=== PATIENT | female | born 1955 | race Caucasian/White ===

== ENCOUNTER → 2018-07-11 09:58 | Outpatient (CLI) | payer BC, SELFPAY | PROVIDERS: PCP Nurse Practitioner Family; Visit Provider Nurse Practitioner Family | DX: R00.2 Palpitations (principal) | CPT/HCPCS: 93225; 93226 ==

== ENCOUNTER → 2018-07-24 16:13 | Outpatient (CLI) | payer BC, SELFPAY ==
--- NOTE | 2018-07-24 16:17 | XR_ITS ---
EXAM: XR lumbar spine min 4V HISTORY: . ITS.REASON: LUMBAR PAIN ORDERING PHYSICIAN: Mercy Stewart PATIENT AGE: 62 years COMPARISON: None FINDINGS: There is mild lumbar scoliosis convex right. Degenerative disc disease is present from L2 to S1. No lytic or blastic change.. There is mild degenerative change in the SI joints on both sides. There are surgical clips in the right upper quadrant with 3 calcific densities in the right upper quadrant which have the appearance of gallstones however, it appears the patient has had a prior cholecystectomy. Abdomen CT may be of further value to determine the etiology of these calcifications. IMPRESSION: 1. Lumbar scoliosis with degenerative disc disease. 2. 3 calcific densities in the right upper quadrant which have the appearance of gallstones however, it appears that the patient has had a prior cholecystectomy. CT may be of further value if clinically desired
--- NOTE | 2018-07-24 16:17 | XR_ITS ---
XR hip LT 2-3V w/pelvis HISTORY: ITS.REASON: LEFT HIP PAIN ORDERING PHYSICIAN: Mercy Stewart PATIENT AGE: 62 years COMPARISON: None FINDINGS: No fracture or dislocation. No lytic or blastic change. There are mild osteoarthritic changes of the hips and mild degenerative changes of the SI joints. IMPRESSION: 1. No acute finding. 2. 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
== END ==
PROVIDERS: PCP Nurse Practitioner Family; Visit Provider Nurse Practitioner Family
DX: M25.552 Pain in left hip (principal); M54.5 Low back pain
CPT/HCPCS: 72110; 73502

== ENCOUNTER → 2020-01-30 14:35 | Outpatient (CLI) | payer BC, SELFPAY ==
--- NOTE | 2020-01-30 14:40 | US_ITS ---
PROCEDURE: US THYROID CLINICAL INDICATION: HYPOTHYROIDISM(ACQUIRED) COMPARISON: No exams were available for comparison FINDINGS: There is a 7 mm hypoechoic nodule in the isthmus the right well-circumscribed. No calcifications. The right lobe is 4.2 x 1.6 cm with diffuse heterogeneous echogenicity. No discrete nodule. The left lobe is 4.1 x 1.3 cm with diffuse heterogeneous echogenicity without discrete nodule. IMPRESSION: TR 4 nodule of the isthmus less than 1.5 cm. Recommend six-month follow-up. Bilateral enlarged thyroid gland with spongiform appearance Dictated by: Edgar Martins MD 01/30/2020 16:51 Edgar Martins MD in [place] 01/30/2020 16:51
== END ==
PROVIDERS: PCP Nurse Practitioner Family; Visit Provider Nurse Practitioner Family
DX: E03.9 Hypothyroidism, unspecified (principal)
CPT/HCPCS: 76536

== ENCOUNTER → 2022-09-20 06:07 | Outpatient (CLI) | payer MEDICARE, SELFPAY ==
--- NOTE | 2022-09-20 | CA_ITS ---
APPROVED REPORT Exam: Pharmacologic Technologist: Olivia Watson, Ht: 5 ft 2 in Wt: 219 lbs BSA: 1.99 m2 HR: 70 bpm BP: 142/73 mmHg Rhythm: SR Medical History Medical History: HTN, Hyperlipidemia, Diabetes Medications: Levothyroxine,,,,, Atenolol,,,,, Atorvastatin,,,,, DulaGLUTIDE,,,,, Esomeprazole magnesium,,,,, Polysaccharide iron complex,,,,, MetoFORMIN ER,,,,, Allergies: No known drug allergies Cardiac Risk Factors: HTN, Hyperlipidemia, Diabetes Stress Test Details Test: LEXISCAN HR Resting HR: 71 bpm Max Heart Rate (APMHR): 156 bpm Max HR Achieved: 105 bpm Target HR (85% APMHR): 133 bpm % of APMHR: 67 Recovery HR: 82 bpm BP Resting BP: 142/73 mmHg Max BP: 142/73 mmHg Recovery BP: 129.0/78.0 mmHg ECG Resting ECG: SR, non-specific T wave changes in the inferior lateral leads Stress ECG: No change Arrhythmia: None Recovery ECG: No change Recovery Arrhythmia: None Clinical Exercise duration: 04:05 min Highest Stage Achieved: Exercise capacity: 1.0 METs Stress ECG Conclusion PT HAD NAUSEA AND DYSPNEA AT BASELINE, ECG SHOWED NSR WITH NON-SPECIFIC T-WAVE CHANGES IN THE INFEROLATERAL LEADS NO CHANGE WITH PHARMAOLOGIC STRESS AGENT NON-DIAGNOSTIC ECG DUE TO BASELINE ABNORMALITIES Test Summary REST 01:10 . . 71 . 142/ 73 . . Stage 1 . . . . . . . Myoview Injected Stage 1 01:00 . . 103 . . . . Stage 2 01:00 . . 100 . 129/ 76 . . Stage 3 01:00 . . 89 . 138/ 72 . . Stage 4 01:00 . . 83 . 133/ 64 . . Stage 4 01:05 . . 83 . 133/ 64 . Stop exercise at 04:05 RECOVERY 01:00 . . 81 . . . . RECOVERY 02:00 . . 82 . . . . RECOVERY 03:00 . . 77 . 121/ 68 . . RECOVERY 04:00 . . 79 . 121/ 68 . . RECOVERY 04:17 . . 78 . 129/ 78 . . Electronically signed by : Breanna Clinton, 09/21/2022 01:44:53
--- NOTE | 2022-09-20 07:22 | NM_ITS ---
APPROVED REPORT Exam: Nuclear Stress Test Indication: DYSRHYTHMIA, OBESITY, DM, HYPERLIPIDEMIA, C.P., PALPITATIONS Patient Location: Outpatient Stress Tech: Olivia Watson [place] Tech:Anna Ramirez MAGO RT (R)(N)(M) Ht: 5 ft 2 in Wt: 200 lbs Bra Size: B HR: 70 bpm BP: 142/73 mmHg BSA: 1.91 m2 TID: 1.01 BMI: 36.5 History: DYSRHYTHMIA, OBESITY, DM, HYPERLIPIDEMIA, C.P., PALPITATIONS Procedure: Patient received 0.4 mg of intravenous Lexiscan, resting heart rate 70 bpm, resting blood pressure 142/73 mmHg, with Lexiscan maximum heart rate achieved was 102 bpm which is 65 % of the maximum predicted heart rate and blood pressure was 129/76 mmHg. With Lexiscan, patient denied any complaint of chest pain. Cardiac Stress and Resting SPECT Images: Cardiac Stress and Resting SPECT images were obtained using technetium 99m Myoview 32.0 mCi stress and 10.55 mCi at rest. Resting and stress imaging in supine position demonstrate a small sized, mild, partially reversible perfusion defect in the anterior LV wall that is no longer visualized with prone stress imaging. Findings are suggestive of breast attenuation. Gated imaging demonstrates normal global and regional LV systolic function. The LVEF is calculated at 54%. Conclusion: Breast attenuation is present. No definite reversible or fixed perfusion defect. Gated imaging demonstrates normal global and regional LV systolic function. The LVEF is calculated at 54%. Electronically signed by : Breanna Clinton, 09/21/2022 01:50:36
== END ==
PROVIDERS: PCP Nurse Practitioner Family; Visit Provider Physician Assistant
DX: E11.9 Type 2 diabetes mellitus without complications (principal); E78.5 Hyperlipidemia, unspecified; I10 Essential (primary) hypertension; R07.9 Chest pain, unspecified; R42 Dizziness and giddiness; R94.31 Abnormal electrocardiogram [ECG] [EKG]; Z79.84 Long term (current) use of oral hypoglycemic drugs
CPT/HCPCS: 78452; 93017; 93306; A9502; J2785

== ENCOUNTER 2023-05-30 04:25 | Emergency (ER) | payer MEDICARE, SELFPAY ==
[2023-05-30 04:25] VITALS: BP 168/87; PULSE 68; RESP 18; TEMP 36.6; O2SAT 100; BMI 31.6
[2023-05-30] MEDS: CYCLOBENZAPRINE 10MG TABLET 5 MG PO (04:38)
[2023-05-30] MEDS: LIDOCAINE 5% TRANSDERMAL PATCH 1 EACH TP (04:38)
--- NOTE | 2023-05-30 04:39 | HMH.EDGENADL ---
Discharge Plan Disposition Patient Disposition: Home, Self-Care Prescriptions Prescriptions: New lidocaine 5 % adhesive patch,medicated 1 patch topical DAILY PRN (Reason: pain) Qty: 30 0RF Rx Instructions: leave on most painful area for up to 12 hrs methocarbamol 500 mg tablet 500 mg PO Q6H PRN (Reason: pain) Qty: 30 0RF cyclobenzaprine 10 mg tablet 10 mg PO Q8H PRN (Reason: muscle spasm) Qty: 30 0RF No Action atorvastatin 20 mg tablet 20 mg PO DAILY atenolol 25 mg tablet 25 mg PO DAILY levothyroxine 100 mcg tablet 100 mcg PO DAILY Patient Comments: TAKE 1 TABLET BY MOUTH IN THE MORNING ON AN EMPTY STOMACH esomeprazole magnesium 40 mg capsule,delayed release(DR/EC) 40 mg PO DAILY Patient Comments: TAKE 1 CAPSULE BY MOUTH ONCE DAILY metformin 500 mg tablet extended release 24 hr 500 mg PO DAILY Pro Fe 180 mg iron capsule 180 mg PO DAILY Patient Comments: TAKE 1 CAPSULE BY MOUTH TWICE DAILY Trulicity 1.5 mg/0.5 mL pen injector 1.5 mg SQ WEEKLY tramadol 50 mg tablet 50 mg PO DAILY PRN Patient Comments: TAKE 1 TABLET BY MOUTH ONCE DAILY NEEDED Referrals Follow up/Referrals: Jaelyn Lewis APRN [Primary Care Provider] - See instructions Activity Restrictions/Add. Instructions Additional Instructions/Restrictions: Take Tylenol as needed for pain. Take muscle relaxers as needed. They can cause drowsiness, do not drive or operate machinery until you know how they will affect you. Please use lidocaine patches as needed for pain. Recommend using heating pad, massaging the area, etc. Please follow-up with your primary care provider. Please return to the emergency department if you develop any new or worsening symptoms or become concerned for your health. Clinical Impressions Clinical Impression: Neck pain, Trapezius muscle spasm Instructions Patient Instructions: DI for Neck Pain Discharge ED Provider: Valentino Josue Adult [facility] General Chief complaint: Neck Pain/Injury Stated complaint: neck pain, swelling in neck Time Seen by Provider: 05/30/23 04:34 Mode of Arrival: Ambulatory Source of Information: Patient Limitations: No Limitations Description of Symptoms (Recalled from ER Triage Doc. by RN): Patient reports left posterior neck pain that is exacerbated by movement for the last several days. Patient reports that she awoke the day the pain started and thought she had slept wrong but the pain has not improved with tylenol, salonpas, and OTC remedies. Patient does not have difficulty with swallowing, denies headache, and denies numbness or tingling of extremities. History of Present Illness HPI narrative: 67-year-old female with history of hypertension, hyperlipidemia, type 2 diabetes presents with neck pain. She reports that she first noticed that when she woke up a couple of days ago. The pain has been worsening since that time. She points to her trapezius muscle as the location of pain. She reports that she feels like her muscle is tight. She denies any headache. Denies any recent trauma. Denies any history of immunocompromise. Denies any radiating neurologic symptoms such as numbness weakness or tingling. No reported fever or concern for infection. Related Data Home Medications Medication Instructions Recorded Confirmed atenolol 25 mg tablet 25 mg PO DAILY 08/11/22 09/27/22 atorvastatin 20 mg tablet 20 mg PO DAILY 08/11/22 09/27/22 dulaglutide 1.5 mg/0.5 mL 1.5 mg SQ WEEKLY 08/11/22 09/27/22 subcutaneous pen injector (Trulicity) esomeprazole magnesium 40 mg 40 mg PO DAILY 08/11/22 09/27/22 capsule,delayed release levothyroxine 100 mcg tablet 100 mcg PO DAILY 08/11/22 09/27/22 metformin 500 mg tablet,extended 500 mg PO DAILY 08/11/22 09/27/22 release 24 hr polysaccharide iron complex 180 mg 180 mg PO DAILY 08/11/22 09/27/22 iron capsule (Pro Fe) tramadol 50 mg tablet 50 mg PO DAILY PRN 09/27/22 09/27/22 Previous Rx's Medication Instructions Recorded cyclobenzaprine 10 mg tablet 10 mg PO Q8H PRN muscle spasm #30 05/30/23 tabs lidocaine 5 % topical patch 1 patch topical DAILY PRN pain #30 05/30/23 ea methocarbamol 500 mg tablet 500 mg PO Q6H PRN pain #30 tabs 05/30/23 Allergies Allergy/AdvReac Type Severity Reaction Status Date / Time No Known Allergies Allergy Verified 09/27/22 08:54 [facility] Disclaimer: The information contained in this section may have been updated after the patient was seen, as this information can be updated by other users. Medical History Abnormal electrocardiogram [ECG] [EKG] Borderline diabetes Chest pain Dizziness DM2 (diabetes mellitus, type 2) FH: cholecystectomy Heart murmur HLD (hyperlipidemia) HTN (hypertension) Surgical History History of carpal tunnel surgery of left wrist History of carpal tunnel surgery of right wrist Family History Father Cancer Mother Cancer Brother Cancer Sister Cancer Diabetes Hypertension Social History Smoking Status: Never smoker alcohol intake: never substance use type: denies use current occupational status: employed Travel in the last 8 weeks: Inside the [place] ROS Obtained: Yes All systems reviewed & no additional complaints except as documented Physical Exam General General appearance: alert and in no apparent distress Head Head exam: atraumatic and normocephalic Eye Eye exam: Present normal appearance, PERRL and EOMI ENT ENT exam: Present normal oropharynx and normal external ear exam Neck Neck exam: Present normal inspection, full ROM and tenderness (Focal tenderness over the left trapezius muscle, no overlying skin changes, no mass or swelling, no lymphadenopathy) Chest Chest inspection: Present normal inspection and symmetric chest wall rise; Absent tenderness Respiratory Respiratory exam: Present normal lung sounds bilaterally; Absent respiratory distress Cardiovascular Cardiovascular exam: Present regular rate and normal rhythm Abdominal Exam Abdominal exam: Present soft; Absent distention, tenderness or guarding Extremities Exam Extremities exam: Present normal inspection; Absent edema or joint swelling Back Exam Back exam: Present normal inspection; Absent tenderness Neurological Exam Neurological exam: Present alert and oriented X3; Absent motor sensory deficit Psychiatric Psychiatric exam: Present normal affect and normal mood Skin Skin exam: Present warm, dry and normal color Lymphatic Lymphatic Findings: no adenopathy Medical Decision Making Medical Records Medical records reviewed: Yes I reviewed the patient's medical records. Mejia Inquiry Pt receiving controlled substance: No Mejia was queried for this patient: No Vital Signs: 05/30/23 04:25 Temperature 97.8 F Temperature Source Oral Pulse Rate [Left Radial] 68 Respiratory Rate 18 Blood Pressure [Right Arm] 168/87 H Blood Pressure Mean [Right Arm] 114 Blood Pressure Source [Right Arm] Automatic Cuff Blood Pressure Position [Right Arm] Sitting 02 Sat by Pulse Oximetry 100 Oxygen Delivery Method Room Air Lab Data Lab results reviewed: Yes I reviewed the patient's lab results. Orders (Tests/Meds): ED MEDICATIONS Discontinued Medications Generic Name Dose Route Start Last Admin Trade Name Rico PRN Reason Stop Dose Admin Cyclobenzaprine HCl 5 mg 05/30/23 04:34 Cyclobenzaprine 10mg Tablet PO 05/30/23 04:35 ONCE ONE Lidocaine 1 each 05/30/23 04:34 Lidocaine 5% Transdermal Patch TP 05/30/23 04:35 ONCE ONE Medical Decision Narrative: 67-year-old female, presentation complicated by hypertension hyperlipidemia type 2 diabetes presents with worsening left-sided neck/shoulder pain for the last couple days that she first noted after waking up. Parental diagnosis includes but not limited to muscle strain, muscle spasm, fracture, dislocation, neurologic injury, infection, malignancy. No evidence of emergent pathology on history or exam. Appears most consistent with muscular issue. CT imaging and labs were considered but deemed to be of low utility. Patient was given lidocaine patch and Flexeril in ED and discharged with prescription for muscle relaxers and lidocaine patches. Return precautions given. Instructions given regarding symptomatic care. Procedures Risk/Benefits of Procedure(s) Were Explained: Yes Critical Care Critical Care Time Critical Care Time: No
[2023-05-30 04:42] VITALS: BP 168/87; PULSE 68; RESP 18; TEMP 36.6; O2SAT 100
== END 2023-05-30 04:47 | disposition home or self-care (01) ==
PROVIDERS: Emergency Provider Emergency Medicine; PCP Nurse Practitioner Family
DX: M54.2 Cervicalgia (principal); M62.838 Other muscle spasm; I10 Essential (primary) hypertension; E78.5 Hyperlipidemia, unspecified; E11.9 Type 2 diabetes mellitus without complications; R01.1 Cardiac murmur, unspecified
CPT/HCPCS: 99283

== ENCOUNTER 2024-04-14 12:12 | Emergency (ER) | payer MEDICARE, SELFPAY ==
[2024-04-14 14:10] VITALS: BP 139/89; PULSE 68; RESP 19; TEMP 36.7; O2SAT 100; BMI 30.6
[2024-04-14 14:24] LABS: UTC Strep Screen (Rapid) Negative (Negative)
--- NOTE | 2024-04-14 14:24 | EXP.UTC ---
Discharge Plan Disposition Patient Disposition: Home, Self-Care Condition: Good Prescriptions Prescriptions: New amoxicillin-pot clavulanate 875-125 mg Tablet 1 tab PO Q12H 7 Days Qty: 14 0RF fluticasone propionate [Flonase Allergy Relief] 50 mcg/actuation spray,suspension 2 spray intranasal DAILY Qty: 16 0RF Rx Instructions: administer into each nostril daily No Action levothyroxine 100 mcg tablet 100 mcg PO DAILY Patient Comments: TAKE 1 TABLET BY MOUTH IN THE MORNING ON AN EMPTY STOMACH metformin 500 mg tablet extended release 24 hr 500 mg PO DAILY atenolol 50 mg tablet 50 mg PO DAILY Patient Comments: TAKE 1 TABLET BY MOUTH ONCE DAILY Referrals Follow up/Referrals: Jaelyn Lewis APRN [Primary Care Provider] - See instructions Activity Restrictions/Add. Instructions Additional Instructions/Restrictions: *Monitor Temp, Over the counter Motrin or Tylenol as directed/as needed Tylenol every 4 hours and Motrin every 6 hours (as long as your family doctor has told you that you can take it) for fever or pain. and straight to ER if unable to lower temp less than 101.0 after medication given *Warm salt water gargles may help to soothe the throat *Throat Lozenges? *Warm fluids like tea with honey may help to soothe the throat? *Sleep elevated *Humidifier/Vaporizer *Your throat swab was sent for culture. Those results are typically sent to your primary care. Be sure to follow up in 2-3 days with your family doctor/primary care physician if no improvement so they can review those result and treat if necessary. If you don?t have a primary care doctor, I recommend you get one but in the mean time, you will have to return to a walk in clinic Follow up IMMEDIATELY for new or worsening symptoms or no Noticeable improvement over the next 48-72 hours. 911 for difficulty breathing or swallowing Clinical Impressions Clinical Impression: Sinusitis Instructions Patient Instructions: DI for Sinusitis, Sinusitis Print Language Print Language: Slovak Discharge ED Provider[place] Marilyn [place] [facility] [place] General Stated complaint: sore throat, congestion Mode of Arrival: Ambulatory Source of Information: Patient Limitations: No Limitations Time Seen by Provider: 04/14/24 14:24 Description of Symptoms (Recalled from Triage Doc. by RN): PATIENT C/O SINUS CONGESTION, SORE THROAT, EAR PAIN AND HEADACHE X 2-3 DAYS HEENT Symptoms (Recalled from RN notes): Yes Resp Symptoms (Recalled from RN notes): No Skin Symptoms (Recalled from RN notes): No MS Symptoms (Recalled from RN notes): No Functional Status (Recalled from RN notes): WNL History of Present Illness Provider Complaint: Patient states that she has been having sinus pain and pressure for almost a week States that for the last 3-4 days she has been having pain and pressure in her ears also so today she came in to get checked Related Data Home Medications ?Medication ?Instructions ?Recorded ?Confirmed levothyroxine 100 mcg tablet 100 mcg PO DAILY 08/11/22 04/14/24 metformin 500 mg tablet,extended 500 mg PO DAILY 08/11/22 04/14/24 release 24 hr atenolol 50 mg tablet 50 mg PO DAILY 04/14/24 04/14/24 Previous Rx's ?Medication ?Instructions ?Recorded amoxicillin 875 mg-potassium 1 tab PO Q12H 7 days #14 tabs 04/14/24 clavulanate 125 mg tablet fluticasone propionate 50 2 spray intranasal DAILY #16 grams 04/14/24 mcg/actuation nasal spray,suspension (Flonase Allergy Relief) Allergies Allergy/AdvReac Type Severity Reaction Status Date / Time No Known Allergies Allergy Verified 09/27/22 08:54 Worker's Comp Is this a Worker's Comp case?: No [facility] Disclaimer: The information contained in this section may have been updated after the patient was seen, as this information can be updated by other users. Medical History Abnormal electrocardiogram [ECG] [EKG] Borderline diabetes Chest pain Dizziness DM2 (diabetes mellitus, type 2) FH: cholecystectomy Heart murmur HLD (hyperlipidemia) HTN (hypertension) Surgical History History of carpal tunnel surgery of left wrist History of carpal tunnel surgery of right wrist Family History Father Cancer Mother Cancer Brother Cancer Sister Cancer Diabetes Hypertension Social History Smoking Status: Never smoker alcohol intake: never substance use type: denies use current occupational status: employed Travel in the last 8 weeks: Inside the [place] Have you lived/traveled outside [place] in past 30 days?: No Contact w/someone who lives/traveled outside US past 30 days?: No Exposure to someone with infectious disease in past 14 days?: No Do you have a fever (greater than 100.4 F or 38 C)?: No Have you tested positive for COVID-19: No Exposed to someone with COVID-19 in past 14 days?: No Do you have a sore throat?: No Do you have a cough?: No Do you have any weakness?: No Do you have any diarrhea?: No Are you experiencing any unusual bleeding?: No Do you have any muscle aches/pain?: No Do you have any abdominal pain?: No Are you experiencing loss of taste or smell?: No ROS Obtained: Yes All systems reviewed & no additional complaints except as documented and Yes Systems reviewed as appropriate & no additional complaints except as documented Constitutional Constitutional: Reports system reviewed and no additional complaints, except as documented and Reports as per HPI ENT Ears, Nose, Mouth, and Throat: Reports system reviewed and no additional complaints, except as documented, Reports as per HPI, Reports otalgia, Reports sinus pain and Reports sinus pressure Cardiovascular Cardiovascular: Reports system reviewed and no additional complaints, except as documented and Reports as per HPI Respiratory Respiratory: Reports system reviewed and no additional complaints, except as documented and Reports as per HPI Gastrointestinal Gastrointestingal: Reports system reviewed and no additional complaints, except as documented and as per HPI Genitourinary Female Genitourinary: Reports system reviewed and no additional complaints, except as documented and Reports as per HPI Physical Exam General General appearance: alert and in no apparent distress ENT ENT exam: Present mucous membranes moist Expanded ENT Exam TM/Canal exam: Bilateral TM: bulging Nose exam: Present sinus tenderness Throat exam: Present other (PND noted) Respiratory Respiratory exam: Present normal lung sounds bilaterally; Absent respiratory distress or wheezes Cardiovascular Cardiovascular exam: Present regular rate, normal rhythm and normal heart sounds Abdominal Exam Abdominal exam: Present soft and normal bowel sounds; Absent distention or tenderness Neurological Exam Neurological exam: Present alert, oriented X3 and normal gait Medical Decision Making Medical Records Screening: Per USPSTF and CDC recommendations, given the prevalence of disease in our region, it is our hospital?s policy to screen for HIV and viral Hepatitis for all patients aged 18 and over and those with ongoing risk factors. Mejia Inquiry Pt receiving controlled substance: No Mejia was queried for this patient: No Vital Signs: 04/14/24 14:10 Temperature 98.1 F Temperature Source Oral Pulse Rate [Left Brachial] 68 Respiratory Rate 19 Blood Pressure [Left Arm] 139/89 Blood Pressure Mean [Left Arm] 105 Blood Pressure Source [Left Arm] Automatic Cuff Blood Pressure Position [Left Arm] Sitting 02 Sat by Pulse Oximetry 100 Oxygen Delivery Method Room Air
[2024-04-14 14:36] VITALS: BP 139/89; PULSE 68; RESP 19; TEMP 36.7; O2SAT 100
== END 2024-04-14 14:37 | disposition home or self-care (01) ==
PROVIDERS: Emergency Provider Nurse Practitioner; PCP Nurse Practitioner Family
DX: J01.90 Acute sinusitis, unspecified (principal)
CPT/HCPCS: 87880; 99213; G0381

== ENCOUNTER 2025-01-22 09:35 | Outpatient (CLI) | payer MEDICARE, SELFPAY ==
--- OUTSIDE RECORDS SUMMARY | 2020-08-05 12:01 | XMS_ITS | Encounter Summary ---
Author Organization [facility] Address [address] [place] [address] Care Team Providers Care Hob Grinder Name Role Phone TerryMercy ERIKA Primary Care Provider + [phone] Reason for Visit * Diagnostic Imaging (Routine) - Closed Specialty Diagnoses / Procedures Referred By Killian t Referred To Contact Radiology Diagnoses Benign thyroid cyst Procedures US Thyroid Jagruti Barreto MD [address] [address] Phone: tel: fax: [facility] [address] [facility] [address] [place] [id number] Phone: tel: fax: Referral ID Status Reason Start Date Expiration Date Visits Re quested Visits Authorized [id number] Closed 08/05/2020 08/05/2021 1 1 Encounter Details Date Type Department Care Team (Late st Contact Info) Description 08/05/2020 12:01 PM EDT Hospital Encounter [facility] [address] [facility] [address] [id number] Social History Tobacco Use Types Packs/Day Years Used Date Smoking Tobacco: Never Smokeless Tobacco: Never Alcohol Use Standard Drinks/Week Comments Not Currently 0 (1 standard drink = 0.6 oz pur e alcohol) socially Abuse Screen Answer Date Recorded Unsafe at Home or Work/School Not on file Feels Threatened by Someone? Not on file 03/2023 Does Anyone Keep You from Co ntacting Others or Doint Things Outside the Home? Not on file 01/20/2023 Physical Sign of Abuse Present Not on file 1 Housing Stability Answer Date Recorded Current Living Arrangements Not on file 01/09 Potentially Unsafe Housing Conditions Not on keisha e 01/20/2023 Family and Community Support Answer Howard e Recorded Help with Day-to-Day Activities Not on file 01/20/2023 Lonely or Isolated Not on file 01/20/2023 Employment Answer Date Recorded Do you want help finding or keeping work or a julissa b? Not on file 01/20/2023 Disabilities Answer Date Recorded Concentrating, Remembering, or Making Decisions Difficulty Not on file 01/20/2023 Doing Errands Independently Difficulty Not on fi le 01/20/2023 Education Answer Date Recorded Help with school or training? Not on file Preferred Language Not on file 01/20/2023 Comments Unknown Sex and Gender Information Value Date Recorded Sex Assigned at Not on file Legal Sex Female 4:04 PM EST Gender Identity Not on file Sexual Orientation Not on file documented as of this encounter Plan of Treatment Not on file documented as of this encounter Procedures Procedure Name Priority Date/Time Associated Diagnosis Comments US THYROID Routine 08/05/2020 12:01 PM EDT Benign thyroid cyst documented in this encounter Results * US Thyroid (08/05/2020 12:01 PM EDT) Narrative SYSTEMGENERATED, DOCUMENTATION - 08/05/2020 12:01 PM EDT Please see performing physician's note for result. us Jagruti Barreto MD IMG US ORDERABLES Final Result documented in this encounter Visit Diagnoses Not on filedocumented in this encounter Care Teams Hob Grinder Relationship Specialty Start Date End Date Mercy Stewart APRN PCP - General Internal Medicine 08/05/20 documented as of this encounter
--- NOTE | 2025-01-22 09:37 | MM_ITS ---
PROCEDURE INFORMATION: Exam: MG Bilateral Screening 3D Mammography Exam date and time: 01/22/2025 10:00 AM Age: 69 years old Clinical indication: Screening examination TECHNIQUE: Imaging protocol: Bilateral Screening tomosynthesis and 2D mammography including computer-aided detection (CAD) when performed. COMPARISON: 1. MG SCN DIG BREAST TOMOSYN DEB 08/24/2023 7:39 AM 2. MG SCN DIG BREAST TOMOSYN DEB 05/05/2021 7:54 AM FINDINGS: MAMMOGRAPHY: Breast composition: There are scattered areas of fibroglandular density. Mass: None. Architectural distortion: None. Calcifications: No suspicious calcifications. Asymmetric density: None. Skin thickening: None. Axillary adenopathy: None. IMPRESSION: No mammographic evidence of malignancy. Annual screening is recommended unless otherwise clinically indicated. ASSESSMENT: BI-RADS Category 1: Negative.
--- OUTSIDE RECORDS SUMMARY | 2025-01-22 09:43 | XMS_ITS | Encounter Summary ---
Author Organization [place] [address] Care Team Providers Care Site Administrator Name Role Phone Terrence Patel DO Unavailable Stephanie Akers MD Unavailable Reason for Visit * Reason Comments Medication Refill Encounter Details Date Type Department Care Team (Late st Contact Info) Description 06/14/2016 Refill SEP Rheumatology [address] [place] [phone] Terrence Patel DO [address] [facility] [address] [place] [address] Medication Refill Social History Tobacco Use Types Packs/Day Years Used Date Smoking Tobacco: Former Comments:smoked 4 years as a teenager. Alcohol Use Standard Drinks/Week Comments No 0 (1 standard drink = 0.6 oz pur e alcohol) Sexually Active Control Partners Comments Yes Post-menopausal, Other-see comments Male Comments No Sex and Gender Information Value Date Recorded Sex Assigned at Not on file Legal Sex Female 1:10 AM EDT Gender Identity Not on file Sexual Orientation Not on file documented as of this encounter Plan of Treatment Not on file documented as of this encounter Visit Diagnoses Diagnosis Polyarthralgia Pain in joint, multiple sites documented in this encounter Care Teams Site Administrator Relationship Specialty Start Date End Date Terrence Patel DO Internal Medicine-Rheumatology 10/14/14 10/26/16 Stephanie Akers MD [address] [place] [address] Physician Internal Medicine-Rheumatology 10/27/16 documented as of this encounter
--- OUTSIDE RECORDS SUMMARY | 2025-01-22 09:43 | XMS_ITS | Clinical Summary ---
Author Organization [facility] Address [address] [place] [address] Phone Care Team Providers Care Crop And Soil Scientist Name Role Phone Stephanie Akers MD Unavailable [phone] Allergies No known active allergies Medications polyethylene glycol (GLYCOLAX, MIRALAX) 17 gram Oral Powder in Packet Take 17 g by mouth daily. Active omeprazole (PRILOSEC) 40 mg Oral Capsule, Delayed Release(E.C.) Take 40 mg by mouth daily. Active MULTIVITAMIN ORAL Take by mouth daily. Active CALCIUM CARBONATE/VITAMIN D3 (CALCIUM 500 + D, D3, ORAL) Take by mouth daily. Active POTASSIUM (POTASSIMIN ORAL) Take by mouth daily. Active VITAMIN D 50,000 unit Oral Capsule TAKE ONE CAPSULE BY MOUTH ONCE WEEKLY 4 Cap 1 5 Active naproxen (NAPROSYN) 500 mg Oral TabletIndications:F ibromyalgia,Primary osteoarthritis of both knees,Chronic low back pain, unspecified back pain laterality, with sciatica presence unspecified,Left hip pain,Polyarthralgia Take 1 Tab by mouth every 12 hours as needed. for pain 60 Tab 5 7 Active DULoxetine (CYMBALTA) 60 mg Oral Capsule, Delayed Release(E.C.)Indica tions:Polyarthralgi a,Fibromyalgia,Prim octavio osteoarthritis of both knees,Chronic low back pain, unspecified back pain laterality, with sciatica presence unspecified,Left hip pain Take 1 Cap by mouth daily. 30 Cap 5 7 Active Active Problems No known active problems Surgical History Surgery Date Site/Laterality Comments SECTION 1990 1993 N/A x 2 CHOLECYSTECTOMY, LAPAROSCOPIC 1992 Right GASTRIC BYPASS SURGERY 2004 CARPAL TUNNEL RELEASE 2010 Bilateral HYSTERECTOMY, TOTAL ABDOMINAL 2011 tumor benign FINGER TRIGGER RELEASE 2014 Right Medical History Medical History Date Comments Anemia Fracture right ankle Obesity Family History Medical History Relation Name Comments Cancer Father liver Liver Cancer Father Other Father other Cancer Maternal Grandfather gastric Cancer Maternal Grandmother liver Arthritis Mother Cancer Mother colon Colon Cancer Mother Psoriasis Mother Relation Name Status Comments Brother 1 Alive Brother 2 Alive Daughter Alive Father Maternal Grandfather Maternal Grandmother Mother Paternal Grandfather Paternal Grandmother Sister 1 Alive Sister 2 Alive Sister 3 Alive Son Alive Social History Tobacco Use Types Packs/Day Years [...] on file Sexual Orientation Not on file Last Filed Vital Signs Vital Sign Reading Time Taken Comments Blood Pressure 110/70 10/27/2016 9:54 AM EDT Pulse 80 10/27/2016 9:54 AM EDT Temperature 36.8 C (98.2 F) 10/14/2014 12:51 PM EDT Respiratory Rate 16 10/27/2016 9:54 AM EDT Oxygen Saturation - - Inhaled Oxygen Concentration - - Weight 108.4 kg (239 lb) 10/27/2016 9:54 AM EDT Height 157.5 cm (5' 2 ) 10/27/2016 9:54 AM EDT Body Mass Index 43.71 10/27/2016 9:54 AM EDT Plan of Treatment Health Maintenance Due Date Last Done Comments Annual Wellness Exam 1960 Hepatitis C Screening 09/24/1975 DTaP/TDaP/Td (1 - Tdap) 01/03/2000 01/02/2000 Cologuard 2002 Colon Cancer Screening 2002 Colonoscopy 2002 FIT 2002 Sigmoidoscopy 2002 Virtual Colonography 2002 Pneumococcal Vaccine 50+ (1 of 1 - PCV) 09/24/2007 Zoster (2 of 2) 07/05/2020 05/10/2020, 05/06/2020 Bone Density Screening 2022 Breast Cancer Screening 08/18/2024 08/18/2022 COVID-19 Vaccine (3 - 2024-2 6 season) 2024 01/28/2021, 12/30/2020 Influenza Vaccine (#1) 2024 12/30/2020 Hepatitis B Vaccine Aged Out No longe r eligible based on patient's age to complete this topic Meningococcal B Vaccine Aged Out No l onger eligible based on patient's age to complete this topic Procedures Procedure Name Priority Date/Time Associated Diagnosis Comments MM MAMMO DIGITAL VARINDER SCREEN BILAT Routine 08/18/2022 2:23 PM EDT Encounter for screening mammogram for malignant neoplasm of breast from Last 3 Months or Most Recently Relevant to Health Maintenance Results * MM MAMMO DIGITAL VARINDER SCREEN BILAT (08/18/2022 2:23 PM EDT) Anatomical Region Laterality Modality Breast Bilateral Mammography 08/23/2022 1:00 PM EDT Impressions 08/23/2022 1:00 PM EDT Negative ([id number]) ~ RECOMMENDATION: Routine screening mammogram in 1 year. ~ DISCLAIMER * Any patient with a palpable abnormality, unexplained by breast imaging, should be managed on clinical basis by the attending physician. * Breast imaging has a false negative rate of 15%. * The patient was notified by mail of the results of this examination. *The patient's information was entered into a reminder system with a target due date for the next mammogram, in accordance with the [employer] and the Society of Breast Imaging recommendations. Narrative 08/23/2022 1:00 PM EDT Procedure:MM MAMMO DIGITAL VARINDER SCREEN BILAT ~ Reason for exam: screening, asymptomatic. Z12.31-Encounter for screening mammogram for malignant neoplasm of [id number]-CM ~ MM MAMMO DIGITAL VARINDER SCREEN BILAT Bilateral CC and MLO view(s) were taken. There are scattered fibroglandular densities. Prior study comparison: Compared with prior studies the most recent being outside breast imaging facility, [facility] 05/05/2021. No mammographic evidence of malignancy. No suspicious calcifications. ~ Procedure Note RichJeb DO Cole - 08/23/2022 Procedure:MM MAMMO DIGITAL VARINDER SCREEN BILAT ~ Reason for exam: screening, asymptomatic. Z12.31-Encounter for screening mammogram for malignant neoplasm of [id number]-CM ~ MM MAMMO DIGITAL VARINDER SCREEN BILAT Bilateral CC and MLO view(s) were taken. There are scattered fibroglandular densities. Prior study comparison: Compared with prior studies the most recentbeing outside breast imaging facility, [facility] 05/05/2021. No mammographic evidence of malignancy. No suspicious calcifications. ~ IMPRESSION: Negative ([id number]-[id number]-7) ~ RECOMMENDATION: Routine screening mammogram in 1 year. ~ DISCLAIMER * Any patient with a palpable abnormality, unexplained by breast imaging, should be managed on clinical basis by the attending physician. * Breast imaging has a false negative rate of 15%. * The patient was notified by mail of the results of this examination. *The patient's information was entered into a reminder system with atarget due date for the next mammogram, in accordance with the [employer] and the Society of Breast Imaging recommendations. us Not In [facility] Provider IMG MAMMOGRAPHY ORDERABLES Final Result from Last 3 Months or Most Recently Relevant to Health Maintenance Insurance [facility] [employer] Care Teams Crop And Soil Scientist Relationship Specialty Start Date End Date Stephanie Akers MD [address] [id number] Physician Internal Medicine-Rheumatology 10/27/16
--- OUTSIDE RECORDS SUMMARY | 2025-01-22 09:43 | XMS_ITS | Clinical Summary ---
Author Organization [facility] Address [address] [place] [address] Care Team Providers Care Coating Mixer Supervisor Name Role Phone Unavailable Primary Care Provider Unavailabl e Social History Tobacco Use Types Packs/Day Years Used Date Smoking Tobacco: Never Assessed Comments Unknown Sex and Gender Information Value Date Recorded Sex Assigned at Not on file Legal Sex Female 7:50 PM EDT Gender Identity Not on file Sexual Orientation Not on file Last Filed Vital Signs Vital Sign Reading Time Taken Comments Blood Pressure 147/79 09/20/2022 8:45 AM EDT Pulse 59 09/20/2022 8:45 AM EDT Temperature - - Respiratory Rate - - Oxygen Saturation - - Inhaled Oxygen Concentration - - Weight 99.3 kg (219 lb) 09/20/2022 8:45 AM EDT Height 157.5 cm (5' 2 ) 09/20/2022 8:45 AM EDT Body Mass Index 40.06 09/20/2022 8:45 AM EDT Plan of Treatment Health Maintenance Due Date Last Done Comments [facility]-Bone Density Scan 1957 [facility]-Depression Screening 1957 [facility]-Hepatitis C Screening 1955 [facility]-Medicare Annual Wellness (AWV) 1955 [facility]-/Child/Adol SDOH Screenings 1955 [facility]-Obesity Intervention 09/24/1963 [facility]- SDOH Screenings 09/24/1975 [facility]-Adult SDOH Screenings 09/24/1975 [facility]-DTaP,Tdap,and Td Vaccine s (1 - Tdap) 01/03/2000 01/02/2000 CT Colonography 2002 Colonoscopy 2002 FIT-DNA 2002 FIT 2002 FOBT 2002 Sigmoidoscopy 2002 [facility]-Colorectal Cancer Screening 2002 [facility]-Pneumococcal Vaccine: 50 + Years (1 of 1 - PCV) 09/24/2007 [facility]-RSV Vaccine: 60+ Years o r (1 - Risk 60-74 years 1-dose series) 2017 [facility]-Zoster Vaccines (2 of 2) 07/05/2020, 05/06/2020 [facility]-Breast Cancer Screening 08/18/202408/09, 08/18/2022 [id number] Vaccine (3 - season) 2024 01/28/2021, 12/30/2020 [facility]-Influenza Vaccine (#1) 2024 12/30/2020 [facility]-Hepatitis A Vaccines Aged Out 019, 12/01/2017 No longer eligible based on patient's age to complete this topic HPV Vaccines Aged Out No longer eligi ble based on patient's age to complete this topic [facility]-HIB Vaccines Aged Out No longer e ligible based on patient's age to complete this topic [facility]-IPV Vaccines Aged Out No longer e ligible based on patient's age to complete this topic [facility]-Rotavirus Vaccines Aged Out No lo nger eligible based on patient's age to complete this topic Insurance [facility]
--- OUTSIDE RECORDS SUMMARY | 2025-01-22 09:44 | XMS_ITS | Clinical Summary ---
[facility] Address [address] [place] [address] Care Team Providers Care Academic Affairs Assistant Name Role Phone Mercy Setwart APRN Primary Care Provider + [phone] Allergies No known active allergies Medications levothyroxine (SYNTHROID, LEVOTHROID) 100 MCG tablet 08/04/2020 Active traMADol (ULTRAM) 50 MG tablet 06/19/2020 Active naproxen (NAPROSYN) 375 MG tablet 07/30/2020 Active omeprazole (priLOSEC) 40 MG capsule Take 40 mg by mouth Daily. Active atenolol (TENORMIN) 25 MG tablet 07/14/2020 Active multivitamin (MULTI-VITAMIN DAILY PO) Take by mouth Daily. 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 Family History Medical History Relation Name Comments Cancer Brother Cancer Father Cancer Mother Relation Name Status Comments Brother Father Mother Social History Tobacco Use Types Packs/Day Years [...] Sign Reading Time Taken Comments Blood Pressure 144/80 08/05/2020 12:09 PM EDT Pulse 78 08/05/2020 12:09 PM EDT Temperature - - Respiratory Rate - - Oxygen Saturation 97% 08/05/2020 12:09 PM EDT Inhaled Oxygen Concentration - - Weight 107 kg (235 lb) 08/05/2020 12:09 PM EDT Height 157.5 cm (5' 2 ) 08/05/2020 12:09 PM EDT Body Mass Index 42.98 08/05/2020 12:09 PM EDT Plan of Treatment Health Maintenance Due Date Last Done Comments DXA SCAN 1955 MAMMOGRAM 1997 COLOGUARD 2002 COLON CANCER SCREENING 5 YEA R SIGMOIDOSCOPY 2002 COLONOSCOPY 2002 [address]AL CANCER SCREENING 2002 CT COLONOGRAPHY 2002 FECAL OCCULT BLOOD TEST 2002 FIT Testing (1 year) 2002 Pneumococcal Vaccine 50+ (1 of 1 - PCV) 09/24/2007 TDAP/TD VACCINES (2 - Tdap) 01/01/2010 01/02/2000 ANNUAL PHYSICAL 05/26/2020 HEPATITIS C SCREENING 05/26/2020 ZOSTER VACCINE (2 of 2) 07/05/2020 05/10/2020, 05/06 INFLUENZA VACCINE 11/09/2024 COVID-19 Vaccine (1 - season) 2024 Insurance [employer] Care Teams Academic Affairs Assistant Relationship Specialty Start Date End Date Mercy Stewart APRN PCP - General Internal Medicine 08/05/20
== END 2025-01-22 23:59 | disposition home or self-care (01) ==
LOC: RAD 09:35
PROVIDERS: PCP Nurse Practitioner Family; Visit Provider Nurse Practitioner Family
DX: Z12.31 Encounter for screening mammogram for malignant neoplasm of breast (principal); R92.323 Mammographic fibroglandular density, bilateral breasts
CPT/HCPCS: 77063; 77067